=== PATIENT | male | born 2000 | race Caucasian/White ===

== ENCOUNTER 2023-08-19 12:22 | Emergency (ER) | payer OTHER, SELFPAY ==
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
[2023-08-19 13:04] VITALS: BP 120/87; PULSE 75; RESP 17; TEMP 36.3; O2SAT 98; BMI 27.7
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
--- NOTE | 2023-08-19 13:14 | PC.NURSE ---
pt a&ox3 states he has generalized 4/10 pain, pt states with movement pain increases to 7/10 pt awaiting imaging.
--- NOTE | 2023-08-19 16:09 | PC.NURSE ---
pt a&ox3, awaiting results of radiology and will discharge home
[2023-08-19 16:39] VITALS: BP 118/77; PULSE 80; RESP 18; TEMP 36.7; O2SAT 99
== END 2023-08-19 16:40 | disposition home or self-care (01) ==
PROVIDERS: Emergency Provider Emergency Medicine Emergency Medical Services
DX: Z04.1 Encounter for examination and observation following transport accident (principal); M25.512 Pain in left shoulder; M54.50 Low back pain, unspecified
CPT/HCPCS: 70450; 72100; 72125; 73030; 99282; 99284

== ENCOUNTER 2023-12-29 12:41 | Outpatient (REF) | payer OTHER, SELFPAY | END 2023-12-29 12:42 | disposition home or self-care (01) | LOC: HO.HOSX 12:41 | PROVIDERS: Visit Provider Physician Assistant | DX: M25.561 Pain in right knee (principal); M25.562 Pain in left knee | CPT/HCPCS: 73560; 73562 ==

== ENCOUNTER 2023-12-29 14:01 | Outpatient (AMB) | payer OTHER, SELFPAY ==
[2023-12-29 14:09] VITALS: BMI 27.7
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
== END 2023-12-29 14:45 | disposition home or self-care (01) ==
LOC: HO.HOS 14:01
PROVIDERS: Visit Provider Physician Assistant
DX: M76.52 Patellar tendinitis, left knee (principal)
CPT/HCPCS: 99203; G2211